=== PATIENT | male | born 1990 | race Caucasian/White ===

== ENCOUNTER 2024-10-01 18:06 | Emergency (ER) | payer OTHER, SELFPAY ==
--- NOTE | 2024-10-01 18:20 | ED_ITS ---
HPI - Wound/Laceration General Chief Complaint: Wound/Laceration Stated Complaint: gash lt thigh Time Seen by Provider: 10/01/24 19:09 Source: patient Limitations: no limitations History of Present Illness ED Provider: Kasie Shah PA-C HPI narrative: 33-year-old male presents with left thigh laceration. Patient states he dropped a knife on the thigh, unclear if tetanus is up-to-date. Related Data Allergies Allergy/AdvReac Type Severity Reaction Status Date / Time Penicillins (PENICILLINS) Allergy Unknown UNKNOWN Verified 10/01/24 18:24 Review of Systems Review of Systems: Yes all other systems are reviewed and are negative Constitutional: Constitutional: Denies fatigue and Denies fever(s) Musculoskeletal: Musculoskeletal: Denies arthralgias and Denies joint swelling Integumentary/Breasts: Skin/Breast: Reports wounds Endocrine: Endocrine: Denies fatigue PMF Past Medical History Attestation statement: The following information was validated with the patient. Social History Social History Advance Directives: No Advance Directives Information Provided: No Do you have a plan to hurt others: No Plan Physical Exam Exam: Exam: Alert Vital Signs: Vital Signs: Last Vital Signs Temp 97.9 F 10/01/24 18:21 Pulse 97 10/01/24 18:21 Resp 16 10/01/24 18:21 BP 138/89 10/01/24 18:21 Pulse Ox 95 10/01/24 18:21 O2 Del Method Room Air 10/01/24 18:21 BMI result Body Mass Index 38.0 Const: Orientation/consciousness: patient oriented x3 Resp: Effort & Inspection: normal respiratory effort Cardio: Other: Normal peripheral perfusion Skin: Other: 2 cm superficial linear laceration noted over anterior left thigh not bleeding Neuro: General: patient oriented x3, gait normal, no focal motor deficits and CN's II-XI intact bilaterally Psych: Other: Cooperative Course Course Course Narrative: Nika Acosta GEOMORPHOLOGIST 10/02 1819 This is a rapid medical exam. Deferred additional HPI, ROS, PE to primary provider. 33 yo male with no PMH here with laceration to left thigh from a knife. 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 Tetanus NOT UTD. Will need lac repair, tetanus updated VSS Medications Administered Discontinued Medications Generic Name Dose Route Start Last Admin Trade Name Freq PRN Reason Stop Dose Admin Diphtheria/Tetanus/Acell Pertussis 0.5 ml 10/01/24 18:23 10/01/24 18:55 Diphth,Pertus(Acell),Tet Adult 0.5 Ml Syringe IM 10/01/24 18:24 0.5 ml .ONCE ONE Administration Lidocaine/Epinephrine 10 ml 10/01/24 19:10 10/01/24 19:53 Lidocaine Hcl 1%/Epi 1:100,000 10 Ml Vial INFILTRATI 10/01/24 19:11 10 ml ONCE ONE Administration Medical Decision Making Medical Decision Making MDM Narrative: 33-year-old male presents with left thigh laceration. Patient states he dropped a knife on the thigh, unclear if tetanus is up-to-date. No chronic issues History: Per patient I have considered the following differential diagnoses: Laceration, abrasion, contusion, excoriation Plan: Laceration will require simple repair, updating tetanus Procedures Laceration Laceration 1: Site: lower extremity Side (If applicable): left Size (cm): 2 Description: linear Depth: simple, single layer Local Anesthetic: lidocaine 1% and with epi Amount of anesthesia used (mL): 2 Pre-repair: irrigated extensively Skin layer closed with: nylon Size (cm): 3-0 Number of sutures: 5 Technique: simple, interrupted Discharge Plan Discharge Clinical Impression: Laceration of left thigh Patient Disposition: Home, Self-Care Instructions: Laceration (ED) Additional Instructions: 5 stitches were used to repair the laceration. They can be removed in 7-10 days. Watch for signs of infection which would include redness, swelling, pus draining from the site, red line tracking up into your groin or fever. If you develop any of these symptoms seek medical attention. Follow up with primary care as needed. Print Language: Chilean
[2024-10-01 18:21] VITALS: BP 138/89; PULSE 97; RESP 16; TEMP 36.6; O2SAT 95; BMI 38.0
--- OUTSIDE RECORDS SUMMARY | 2024-10-01 18:47 | XMS_ITS | Encounter Summary ---
Author Organization [facility] Address [address] [place] [address] Phone Care Team Providers Care Seasoning Mixer Name Role Phone Ca Vidales MD Primary Care Provider [phone] Encounter Details Date Type Department Care Team (Late st Contact Info) Description 10/29/2016 Conversion Encounter [facility] [place] [address] [place] [address] Social History Tobacco Use Types Packs/Day Years Used Date Smoking Tobacco: Never Assessed Sex and Gender Information Value Date Recorded Sex Assigned at Not on file Legal Sex Male 4:30 PM EDT Gender Identity Not on file Sexual Orientation Not on file documented as of this encounter Plan of Treatment Not on file documented as of this encounter Visit Diagnoses Not on filedocumented in this encounter Care Teams Seasoning Mixer Relationship Specialty Start Date End Date Ca Vidales MD [address] [place] [address] PCP - General 10/23/16 06/23/22 documented as of this encounter
[2024-10-01] MEDS: Diphth,Pertus(ACell),Tet Adult 0.5 ML SYRINGE IM (18:55)
[2024-10-01] MEDS: Lidocaine HCl 1%/Epi 1:100,000 10 ML VIAL INFILTRATI (19:53)
[2024-10-01 20:11] VITALS: BP 135/89; PULSE 91; RESP 18; TEMP 36.7; O2SAT 97
[2024-10-02 01:18] VITALS: BP 135/89; PULSE 91; RESP 18; TEMP 36.7; O2SAT 97
== END 2024-10-01 20:10 | disposition home or self-care (01) ==
PROVIDERS: Emergency Provider Emergency Medicine
DX: S71.112A Laceration without foreign body, left thigh, initial encounter (principal); M79.652 Pain in left thigh; W26.0XXA Contact with knife, initial encounter; Y93.9 Activity, unspecified; Y92.9 Unspecified place or not applicable; Y99.8 Other external cause status; Z23 Encounter for immunization
CPT/HCPCS: 12001; 90715; 99284; J2004

== ENCOUNTER 2024-10-11 21:05 | Emergency (ER) | payer OTHER, SELFPAY ==
[2024-10-11 21:22] VITALS: BP 124/77; PULSE 112; RESP 18; TEMP 37.1; O2SAT 96; BMI 27.4
--- NOTE | 2024-10-11 22:23 | ED.WOUNDLAC ---
HPI - Wound/Laceration General Chief Complaint: Wound/Laceration Stated Complaint: stitch removal Time Seen by Provider: 10/11/24 22:12 Source: patient Mode of arrival: ambulatory Limitations: no limitations History of Present Illness ED Provider: Dr. Loreta Manley HPI narrative: Patient comes to the emergency room for suture removal. Ten days ago, patient had a laceration to the anterior aspect of the left thigh, patient denies any problems. His wound looks slightly erythematous but has no pain drainage fever or chills. Related Data Allergies Allergy/AdvReac Type Severity Reaction Status Date / Time Penicillins (PENICILLINS) Allergy Unknown UNKNOWN Verified 10/11/24 21:25 Review of Systems Review of Systems: Constitutional : No Weight loss, No Fever, No Chills, No Night Sweats, No Fatigue, No Malaise ENT/Mouth : No Hearing loss, No Ear Pain, No Nasal Congestion, No Sinus Pain, No Hoarseness, No sore throat, No Rhinorrhea, No Swallowing Difficulty Eyes: No Eye Pain, No Swelling, No Redness, No Foreign Body, No Discharge, No Vision Changes Cardiovascular : No Chest Pain, No SOB, No Dyspnea on Exertion, No Orthopnea, No Edema, No Palpitations Respiratory : No Cough, No Sputum, No Wheezing, No Smoke Exposure, No Dyspnea Gastrointestinal : No Nausea, No Vomiting, No Diarrhea, No Constipation, No abdominal Pain, No Hematochezia, No Melena Genitourinary : no irregular bleeding, No Dysuria, No Urinary Frequency, No Hematuria, No Urinary Incontinence, No Urgency, No Flank Pain, No Urinary Flow Changes, No Hesitancy Musculoskeletal : No joint pain, No Myalgias, No Joint Swelling Skin : Lids stitches to be removed in the left thigh, 5 Neuro : No Weakness, No Numbness, No Paresthesias, No Loss of Consciousness, No Dizziness, No Headache Psych : No Anxiety/Panic, No Depression, No SI/HI/AH/VH, No Social Issues, Heme/Lymph: No Bruising, No Bleeding,No Lymphadenopathy Endocrine : No Polyuria, No Polydipsia, No Temperature Intolerance [facility] Social History Social History Alcohol intake: current Alcohol intake frequency: holidays/special occasions only Substance Use Type: Marijuana Advance Directives: No Advance Directives Information Provided: Yes Physical Exam Exam: Exam: Appearance: Alert. Oriented X3. No acute distress. Eyes: Pupils equal, round and reactive to light. ENT: Pharynx normal. Neck: Normal inspection. Neck supple. No lymph nodes noted. No crepitus CVS: Normal heart rate and rhythm. Pulses normal. Normal S1 and S2 Respiratory: No respiratory distress. Breath sounds normal. No Wheezing. No rales Abdomen: Soft and nontender. No rigidity. No distention. Skin: Skin warm and dry. Normal skin color. Normal skin turgor. . On the left thigh there are 5 sutures that need to be removed, the wound looks clean, well healed. A bit of erythema around it, does not seem to be secondary to infection more like scarring/kiloid Extremities: No lower extremity edema. No Lacerations. No Rash Neuro: Oriented X 3. No motor deficit. No sensory deficit. Moving all extremities. No slurred speech. CN 2 through 12 grossly intact Psych: calm, cooperative, normal affect Vital Signs: Vital Signs: Last Vital Signs Temp 98.8 F 10/11/24 21:22 Pulse 112 H 10/11/24 21:22 Resp 18 10/11/24 21:22 BP 124/77 10/11/24 21:22 Pulse Ox 96 10/11/24 21:22 O2 Del Method Room Air 10/11/24 21:22 BMI result Body Mass Index 27.4 Medical Decision Making Medical Decision Making MDM Narrative: Five stitches were removed. Bacitracin was applied. Skin is a bit erythematous but looks more like contact dermatitis/early keloid rather than cellulitis Discharge Plan Discharge Clinical Impression: Encounter for removal of sutures Patient Disposition: Home, Self-Care Instructions: Stitches Removal (ED) Additional Instructions: Please follow-up with your primary care physician tomorrow. If you have any worsening or new symptoms, please return to the emergency room or call 911 Print Language: Latvian
[2024-10-11 22:30] VITALS: BP 124/77; PULSE 112; RESP 18; TEMP 37.1; O2SAT 96
== END 2024-10-11 22:30 | disposition home or self-care (01) ==
PROVIDERS: Emergency Provider Emergency Medicine
DX: Z48.02 Encounter for removal of sutures (principal)
CPT/HCPCS: 99282

== ENCOUNTER 2025-03-09 13:44 | Emergency (ER) | payer OTHER, SELFPAY ==
--- NOTE | ~2025-03-09 | XR_ITS ---
CLINICAL HISTORY: pain 2 view chest x-ray. Comparison: None Findings: No consolidation or effusion. Cardiac and mediastinal contours are unremarkable. Bones unremarkable. Impression: 1. No acute pulmonary disease. This document has been electronically signed by: Tung Hester MD on 03/09/2025 19:33:39
--- NOTE | ~2025-03-09 | US_ITS ---
EXAMINATION: US RETROPERITONEAL LIMITED (RENAL ONLY) CLINICAL INFORMATION: Right flank pain. COMPARISON: None available. TECHNIQUE: Ultrasound bilateral kidneys FINDINGS: RIGHT KIDNEY: 11.6 x 5.8 x 7 cm (SAG x AP x TRV). The kidney is normal in size, contour, and echogenicity. Renal cortical thickness is normal. No calculi or focal parenchymal lesions. No hydronephrosis. LEFT KIDNEY: 12.7 x 7.1 x 6.7 cm (SAG x AP x TRV). The kidney is normal in size, contour, and echogenicity. Renal cortical thickness is normal. No calculi or focal parenchymal lesions. No hydronephrosis. US/US renal BI IMPRESSION: Unremarkable renal ultrasound. Electronically signed by: Srinath White MD 03/09/2025 02:55 PM MICHAELA MCCOY
[2025-03-09 14:06] VITALS: BP 168/93; PULSE 87; RESP 18; TEMP 36.2; O2SAT 97; BMI 40.9
--- NOTE | 2025-03-09 14:06 | ED_ITS ---
HPI - Abdominal Pain General Chief Complaint: Abdominal Pain Stated Complaint: Lower/ Middle Back Pain Time Seen by Provider: 03/09/25 18:28 Source: patient Mode of arrival: ambulatory Limitations: no limitations History of Present Illness ED Provider: Elizabeth Clay PA-C HPI narrative: Patient is a 34 year old male with no reported medical history presenting to the emergency department today with back pain. Patient states that over the last 3 days he has had bilateral back pain that has now settled on the right side of his back. Patient states that he has more pain with lying flat. Patient denies any pain with urination or blood in his urine. Patient denies any trauma or falls. Patient denies any urinary incontinence or retaining. Patient denies any other complaints at this time. Related Data Allergies Allergy/AdvReac Type Severity Reaction Status Date / Time Penicillins (PENICILLINS) Allergy Unknown UNKNOWN Verified 03/09/25 14:09 Review of Systems Constitutional: Reports as per HPI Eyes: Reports as per HPI Reports as per HPI Cardiovascular: Reports as per HPI Respiratory: Reports as per HPI Gastrointestinal: Reports as per HPI Genitourinary: Reports as per HPI Musculoskeletal: Reports as per HPI Skin/Breast: Reports as per HPI Reports as per HPI Psychiatric: Reports as per HPI Endocrine: Reports as per HPI Hematologic/Lymphatic: Reports as per HPI Allergic/Immunologic: Reports as per HPI PMFSH Past Medical History Attestation statement: The following information was validated with the patient. Source: old records reviewed and nursing notes reviewed Social History Social History Alcohol intake: current Alcohol intake frequency: holidays/special occasions only Smoked in Last 30 Days: No Use of substances other than those prescribed or required for medical reasons: No Substance Use Type: Marijuana Advance Directives: No Advance Directives Information Provided: Yes Do you have a plan to hurt others: No Plan Physical Exam ED Vital Signs: Vital Signs - 24 hr 03/09/25 14:06 03/09/25 18:52 03/09/25 19:37 Temperature 97.2 F 98.1 F 98.0 F Pulse Rate 87 80 81 Respiratory Rate 18 18 15 Blood Pressure 168/93 H 125/79 135/81 Pulse Oximetry 97 98 99 Oxygen Delivery Method Room Air Room Air Room Air 03/09/25 20:12 Temperature 98.0 F Pulse Rate 81 Respiratory Rate 15 Blood Pressure 135/81 Pulse Oximetry 99 Oxygen Delivery Method Room Air BMI result Body Mass Index 40.9 Const General: cooperative, no acute distress, alert and awake Nutritional Appearance: well nourished Orientation/consciousness: patient oriented x3 HENMT Head: Yes normal to inspection and Yes atraumatic Ears: hearing grossly normal bilaterally and external ears normal General nose exam: Normal external nose present, no nasal discharge noted and no epistaxis Face and sinus: Yes normal facial exam, No abrasion and No laceration Mouth: Normal oral and palatal mucosa present, no drooling and no muffled voice Eyes General: appearance normal, both eyes and all related structures Periorbital: periorbital findings normal Eyelids: Yes eyelids normal Conjunctivae: conjunctivae normal Pupils: Equal, round and reactive pupils present EOM: EOMs intact bilaterally Neck Neck: Yes normal visual inspection and Yes full ROM Resp Effort & Inspection: normal respiratory effort and able to speak in complete sentences Neuro General: patient oriented x3, moves all extremities and CN's II-XI intact bilaterally Cranial nerves: Yes Equal, round and reactive pupils present Cognition (Neuro): normal cognition Extrem General: Yes normal to inspection, Yes full ROM and Yes capillary refill normal Psych Appearance: grossly normal Mental Status: mental status grossly normal Affect: normal affect Attitude: cooperative Thought process: Normal thought process present Thought content: Normal thought content present Insight: Good insight present (Psych) Course Course Course Narrative: This is a Rapid Medical Exam performed in triage by Elizabeth Ervin PA-C. Full HPI, ROS and PE to be performed by primary ED provider. 34 yo M presenting to the ED c/o R flank pain x 4 days. Had dysuria a few days ago but denies at present. denies hematuria. +nausea PE: abdomen soft & nontender, no CVAT Plan: labs, UA, US Medical Decision Making Medical Decision Making MDM Narrative: Patient is a 34 year old male with no reported medical history presenting to the emergency department today with back pain. Patient's physical exam was as noted in the physical exam portion of this note. Patient's blood work was showed a very mildly elevated total CK of 213 with an ALT of 58. Patient's urine showed no acute process. Patient's EKG showed no obvious evidence of arrhythmia, ischemia, or infarct. Patient's chest x-ray and renal US (ordered by the provider in triage) showed no acute process. Patient received IM Toradol and IV fluids while in the department which, upon re-evaluation, he stated it helped his symptoms some. Patient's clinical presentation is most consistent with musculoskeletal back pain. I explained my physical exam findings as well as all test results to the patient. I answered all questions asked by the patient. I stressed the importance of the patient taking his medication as directed (either prescribed or as the over the counter packaging recommends). I stressed the importance of the patient following up with his primary care provider. I stressed the importance of the patient returning to the emergency department immediately if his symptoms were to worsen or if he were to develop any dizziness, shortness of breath, difficulty breathing, chest pain, blurry vision, loss of vision, nausea, vomiting, abdominal pain, fever, chills, back pain, or any other complaints. Patient verbalized agreement and understanding with this treatment plan and discharge. Differential Diagnosis Differential Diagnoses: The differential diagnosis associated with the presentation includes Musculoskeletal pain Renal colic Flank pain Admission/Observation Consideration of admission/observation: Escalation of care including admission/observation considered Patient would have been admitted to the hospital had his work up had any findings where hospital admission was appropriate and his clinical presentation warranted hospital admission. Lab Data [facility] Lab Attestation statement: I reviewed the patient's lab results. My interpretation of these results are in the [facility] Rationale portion of this note. 03/09/25 15:21 03/09/25 15:21 Labs: Lab Results 03/09/25 03/09/25 Range/Units 15:21 18:49 WBC 7.4 (4.8-10.8) X10*3/uL RBC 5.06 (4.60-5.80) X10*6/uL Hgb 15.2 (14.0-18.0) g/dl Hct 44.0 (42.0-52.0) % MCV 87.0 (80.0-98.0) fL MCH 30.0 (27.0-33.0) pg MCHC 34.5 (31.0-36.0) g/dl RDW 12.7 (11.0-16.0) % Plt Count 195 (160-400) X10*3/uL MPV 9.7 (9.4-12.4) fL Immature Gran % (Auto) 0.5 H (0.0-0.4) % Neut % (Auto) 65.8 (45-73) % Lymph % (Auto) 20.6 (20-40) % [place] % (Auto) 8.8 (2-11) % Eos % (Auto) 3.1 (0-4) % Baso % (Auto) 1.2 (0-2) % Lymph # (Auto) 1.5 (1.2-4.9) X10*3/uL [place] # (Auto) 0.7 (0.1-1.2) X10*3/uL Eos # (Auto) 0.2 (0.0-0.4) X10*3/uL Baso # (Auto) 0.1 (0.0-0.2) X10*3/uL Abs Immat Gran (auto) 0.04 H (0.00-0.03) X10*3/uL Absolute Neuts (auto) 4.9 (2.0-8.3) x10*3/uL Absolute Nucleated RBC 0.000 (0.0-0.012) X10*3/uL Nucleated RBC % (auto) 0.0 (0.0-0.2) /100WBC Sodium 139 (135-145) mmol/L Potassium 4.2 (3.3-5.1) mmol/L Chloride 107 (96-108) mmol/L Carbon Dioxide 25 (22-29) mmol/L Anion Gap 11 L (12-20) BUN 14 (9-16) mg/dL Creatinine 1.07 (0.5-1.4) mg/dL Estim Creat Clear Calc 127.4 Estimated GFR > 60 Random Glucose 111 (60-115) mg/dL Calcium 9.4 (8.4-10.2) mg/dL Magnesium 2.0 (1.6-2.6) mg/dL Total Bilirubin 0.4 (0.0-1.0) mg/dL Direct Bilirubin 0.2 (0.0-0.5) mg/dL AST 34 (5-37) U/L ALT 58 H (0-40) U/L Alkaline Phosphatase 93 (39-117) U/L Total Creatine Kinase 213 H (38-174) U/L Total Protein 7.8 (6.5-8.0) g/dL Albumin 4.5 (3.5-5.0) g/dL Lipase 30 (8-78) U/L Urine Color Yellow Urine Appearance Clear Urine pH >= 9.0 (5.0-9.0) Ur Specific Huggins 1.025 (1.005-1.025) Urine Protein Trace (Neg-Trace) mg/dL Urine Glucose (UA) Negative (Negative) mg/dL Urine Ketones Negative (Negative) mg/dL Urine Blood Negative (Negative) Urine Nitrite Negative (Negative) Ur Leukocyte Esterase Negative (Negative) Influenza Type A (PCR) NEGATIVE (Negative) Influenza Type B (PCR) NEGATIVE (Negative) RSV RNA Qual (PCR) NEGATIVE (Negative) SARS-CoV-2 RNA (RT-PCR) NEGATIVE (Negative) Independent Interpretation I performed an independent interpretation of an: EKG, Plain X-Ray and Ultrasound Interpretation: My interpretation is in agreement with the radiologist's impression of these imaging studies as written below. EXAMINATION: US RETROPERITONEAL LIMITED (RENAL ONLY) CLINICAL INFORMATION: Right flank pain. COMPARISON: None available. TECHNIQUE: Ultrasound bilateral kidneys FINDINGS: RIGHT KIDNEY: 11.6 x 5.8 x 7 cm (SAG x AP x TRV). The kidney is normal in size, contour, and echogenicity. Renal cortical thickness is normal. No calculi or focal parenchymal lesions. No hydronephrosis. LEFT KIDNEY: 12.7 x 7.1 x 6.7 cm (SAG x AP x TRV). The kidney is normal in size, contour, and echogenicity. Renal cortical thickness is normal. No calculi or focal parenchymal lesions. No hydronephrosis. US/US renal BI IMPRESSION: Unremarkable renal ultrasound. Electronically signed by: Srinath White MD 03/09/2025 02:55 PM [facility] [place] Dictated By: Srinath White MD Signed By: Electronically signed by Srinath White MD 03/09/25 1455 CLINICAL HISTORY: pain 2 view chest x-ray. Comparison: None Findings: No consolidation or effusion. Cardiac and mediastinal contours are unremarkable. Bones unremarkable. Impression: 1. No acute pulmonary disease. This document has been electronically signed by: Tung Hester MD on 03/09/2025 19:33:39 Dictated By: Tung Hester MD Signed By: Electronically signed by Tung Hester MD 03/09/25 1934 Radiology Impression Discussion of test interpretation with radiology: I have reviewed the radiologist's reading. Medications Administered Discontinued Medications Generic Name Dose Route Start Last Admin Trade Name Freq PRN Reason Stop Dose Admin Sodium Chloride 1,000 mls @ 999 mls/hr 03/09/25 19:00 03/09/25 19:23 Ns IV 03/09/25 20:00 999 mls/hr .Q1H1M MAX Administration Ketorolac Tromethamine 15 mg 03/09/25 18:33 03/09/25 18:50 Ketorolac Tromethamine 15 Mg/Ml Vial IM 03/09/25 18:34 15 mg ONCE ONE Administration Discharge Plan Discharge Clinical Impression: Musculoskeletal back pain Patient Disposition: Home, Self-Care Instructions: Back Pain (ED) Additional Instructions: Your work up today was reassuring there is no EMERGENT cause for your symptoms. Your labs and imaging were negative. Take ibuprofen + tylenol for pain over the counter. IF you are prescribed home medications and/or you are taking over the counter medications at home - it is very important you continue to do so as prescribed / directed unless told otherwise by a healthcare provider. Follow up with your primary care provider. Do your best to stay well hydrated and rest. Return to the emergency department immediately if your symptoms worsen or if you develop any numbness, tingling, dizziness, shortness of breath, difficulty breathing, chest pain, blurry vision, loss of vision, nausea, vomiting, abdominal pain, fever, chills, back pain, or any other complaints. L If you do not have a primary care provider - call any of the below numbers to establish and follow up with a primary care provider. [facility] ([place]) [phone] [place] [address], [address] [facility] ([address] [place] [address]) [phone] [place] [address], [address] [facility], [address] [facility] ([address]) [phone] [place] [address], [address] [facility], [address] [facility] ([place]) [phone] [place] [address], [address] [place], [address] [facility] [phone] [address] [facility], [address] Please see the information below about our Patient Portal. If you are not yet enrolled in the [facility] Patient Portal, you will receive an enrollment email invitation following your visit to any [facility] setting. You may also self-enroll in the Patient Portal by visiting our website: [email or web address] The following information is required to access the Patient Portal: - Your [facility] Medical Record Number - Your personal home email address (must match what is in your electronic medical record, Registration staff can assist with this) - Name - Date of Capabilities of the Patient Portal: - Message some providers - View upcoming appointments - Access your health summary, medical history, and visit history - View current conditions and allergies - View procedure and lab results - View your medications, including guidelines, side effects, and precautions - Complete pre-appointment questionnaires requested by your provider - Ready summary reports of your office visits and procedures To access the Patient Portal Mobile Chip, follow these directions: - Search [employer] in the Chip Store or Google Play Store - Download the Chip - Search for [facility] - Enter your login/password Stand Alone Forms: Work/School Release Interventions: ED Discharge Assessment Last Done: 03/09/25 20:12 Discharge Date/Time: 03/09/25 20:13 Print Language: Kazakh
[2025-03-09 15:27] LABS: MANUAL DIFF FLAG NO
[2025-03-09 15:32] LABS: Hematocrit 44.0 % (42.0-52.0); Hemoglobin 15.2 g/dl (14.0-18.0); Imm Gran Abs Auto 0.04 X10*3/uL (0.00-0.03); Imm Gran Pct Auto 0.5 % (0.0-0.4); Lymphocytes Absolute Auto 1.5 X10*3/uL (1.2-4.9); Mean Corpuscular HGB Conc 34.5 g/dl (31.0-36.0); Mean Corpuscular Hemoglobin 30.0 pg (27.0-33.0); Mean Corpuscular Volume 87.0 fL (80.0-98.0); NRBC Abs Auto 0.000 X10*3/uL (0.0-0.012); NRBC Pct Auto 0.0 /100WBC (0.0-0.2); Platelet Count 195 X10*3/uL (160-400); Red Blood Count 5.06 X10*6/uL (4.60-5.80); White Blood Count 7.4 X10*3/uL (4.8-10.8)
[2025-03-09 15:34] LABS: Appearance Urine Clear; Glucose Urine UA Negative (Negative); PH >= 9.0 (5.0-9.0); Specific Gravity - Urine 1.025 (1.005-1.025)
[2025-03-09 15:58] LABS: Alanine Aminotransferase 58 U/L (0-40); Albumin Level 4.5 g/dL (3.5-5.0); Alkaline Phosphatase 93 U/L (39-117); Anion Gap 11 (12-20); Aspartate Amino Transferase 34 U/L (5-37); Blood Urea Nitrogen 14 mg/dL (9-16); Calcium 9.4 mg/dL (8.4-10.2); Carbon Dioxide 25 mmol/L (22-29); Chloride 107 mmol/L (96-108); Creatinine Clr Calc Pharmacy 127.4; Estimated Glomerular Filt Rate > 60; Lipase 30 U/L (8-78); Magnesium 2.0 mg/dL (1.6-2.6); Potassium 4.2 mmol/L (3.3-5.1); Sodium 139 mmol/L (135-145); Total Protein 7.8 g/dL (6.5-8.0)
--- OUTSIDE RECORDS SUMMARY | 2025-03-09 18:35 | XMS_ITS | Encounter Summary ---
Author Organization [facility] Address [address] [place] [address] Phone Care Team Providers Care Multifocal Button Generator Name Role Phone Ca Viadles MD Primary Care Provider [phone] Encounter Details Date Type Department Care Team (Late st Contact Info) Description 10/29/2016 Conversion Encounter [facility] [place] [address] [place] [address] Social History Tobacco Use Types Packs/Day Years [...] on filedocumented in this encounter Care Teams Multifocal Button Generator Relationship Specialty Start Date End Date Ca Vidales MD [address] [place] [address] PCP - General 10/23/16 06/23/22 documented as of this encounter
--- OUTSIDE RECORDS SUMMARY | 2025-03-09 18:36 | XMS_ITS | Clinical Summary ---
Author Organization [facility] Address [address] [place] [phone] Phone Care Team Providers Care Technical Manager Name Role Phone Unavailable Primary Care Provider Unavailabl e Immunizations Immunization Administration Dates Next Due DTP 07/19/1995, 3,05/12/1991,03/09,1990 Hep B, ped/adol 04/12/1995,11/09/1994,10/12/1994 Hib (PRP-T) 01/11/1992, 2,03/09/1991,12/15 IPV 04/22/1992 MMR 10/12/1994,01/11/1992 Meningococcal Conj (Menactra) MCV4P 10/12/2006 OPV 07/19/1995,03/09/1991,1990 Td (adult) (MBL), 2 Lf tetan us toxoid, PF, adsorbed 10/17/2001 Tdap 10/12/2006 Varicella 11/01/2007,10/01/1998 Family History Relation Name Status Comments Brother Alive Brother: Alive and well Father Alive Father: ETOH / ? seizures Mother Alive Mother: Thyroid disease Other Family history of Strabismus/amblyopia, Family history of Elevated cholesterol, Family history of Seizure disorder, Family history of Diabetes mellitus Social History Tobacco Use Types Packs/Day Years Used Date Smoking Tobacco: Never Assessed Sex and Gender Information Value Date Recorded Sex Assigned at Not on file Legal Sex Male 4:30 PM EDT Gender Identity Not on file Sexual Orientation Not on file Last Filed Vital Signs Vital Sign Reading Time Taken Comments Blood Pressure 118/60 10/31/2009 12:00 AM EDT Pulse - - Temperature - - Respiratory Rate - - Oxygen Saturation - - Inhaled Oxygen Concentration - - Weight 88 kg (194 lb) 10/31/2009 12:00 AM EDT Height 176 cm (5' 9.3 ) 10/31/2009 12:00 AM EDT Body Mass Index 28.4 10/31/2009 12:00 AM EDT Plan of Treatment Health Maintenance Due Date Last Done Comments DTaP,Tdap,and Td Vaccines (7 - Td or Tdap) 10/12/2016 10/12/2006, 10/17/2001, 07/19/1995, Additional history exists HPV Vaccines (1 - 3-dose SCDM series) 2017 Influenza Vaccines (#1) 2024 COVID-19 Vaccine ( season) 2024 HIB Vaccines Completed 01/11/1992, 04/16, 03/09/1991, Additional history exists MMR Vaccines Completed 10/12/1994, 01/11/1992 Hepatitis B Vaccines Completed 04/12/1995, 11/09/1994, 10/12/1994 IPV Vaccines Completed 07/19/1995, 10/1992, 03/09/1991, Additional history exists Meningococcal Vaccine Completed 10/12/2006 Varicella Vaccines Completed 11/01/2007, 10/01/1998 Hepatitis A Vaccines Aged Out No long er eligible based on patient's age to complete this topic Men B Vaccine Aged Out No longer elig ible based on patient's age to complete this topic Pneumococcal Vaccine Aged Out No long er eligible based on patient's age to complete this topic
[2025-03-09 18:52] VITALS: BP 125/79; PULSE 80; RESP 18; TEMP 36.7; O2SAT 98
[2025-03-09 19:37] VITALS: BP 135/81; PULSE 81; RESP 15; TEMP 36.7; O2SAT 99
[2025-03-09 19:50] LABS: Resp Syncy Virus RNA Qual PCR NEGATIVE (Negative); SARS COV2 PCR INHOUSE NEGATIVE (Negative)
[2025-03-09 20:12] VITALS: BP 135/81; PULSE 81; RESP 15; TEMP 36.7; O2SAT 99
== END 2025-03-09 20:13 | disposition home or self-care (01) ==
PROVIDERS: Physician Assistant; Physician Assistant Medical; Emergency Provider Student in an Organized Health Care Education/Training Program
DX: M54.50 Low back pain, unspecified (principal); M54.6 Pain in thoracic spine; Z03.818 Encounter for observation for suspected exposure to other biological agents ruled out; R30.0 Dysuria; R11.0 Nausea
CPT/HCPCS: 36415; 71046; 76775; 80048; 80076; 81003; 82550; 83690; 83735; 85025; 87637; 96372; 99284; 99285; J1885

== ENCOUNTER → 2025-03-09 14:09 | Outpatient (BNV) | payer OTHER, SELFPAY | PROVIDERS: Visit Provider Radiology Diagnostic Ultrasound | DX: R10.A1 Flank pain, right side (principal); R07.9 Chest pain, unspecified | CPT/HCPCS: 71046; 76775 ==